=== PATIENT | female | born 1945 | race Two or more races ===

== ENCOUNTER 2022-08-24 14:15 | Emergency (ER) | payer OTHER ==
[~2022-08-24] VITALS: Ht 144.8 cm; Wt 63.5 kg
[2022-08-24] MEDS ORDERED: GLYXAMBI 10 MG1 EACH (14:32)
[2022-08-24] MEDS ORDERED: PAROXETINE HCL20 MG (14:32)
[2022-08-24] MEDS ORDERED: ATARAX25 MG (14:33)
[2022-08-24] MEDS ORDERED: IRBESARTAN-HCT1 EACH (14:33)
[2022-08-24] MEDS ORDERED: VITAMIN B122500 MCG (14:34)
[2022-08-24] MEDS ORDERED: IRON325 MG (14:34)
[2022-08-24] MEDS ORDERED: PEPCID AC20 MG (14:35)
[2022-08-24] MEDS ORDERED: FOLIC ACID20 MG (14:35)
== END 2022-08-24 18:34 | disposition home or self-care (01) ==
LOC: ER 14:15
DX: E11.65 Type 2 diabetes mellitus with hyperglycemia (principal); Z88.0 Allergy status to penicillin; I10 Essential (primary) hypertension